=== PATIENT | female | born 1985 | race African-American/Black ===

== ENCOUNTER 2019-01-28 23:40 | Emergency (ER) | payer OTHER ==
[~2019-01-28] VITALS: Ht 175.3 cm; Wt 100.0 kg
[2019-01-29] MEDS ORDERED: VISCOUS LIDOCAINE 2% 15 ML UDC MM STA (01:39)
[2019-01-29] MEDS ORDERED: MAGNESIUM/ALUMINUM HYDROXIDE/SIMETHICONE 30ML UDC PO ONE (01:45)
[2019-01-29 04:17] VITALS: BP 119/55
== END 2019-01-29 04:19 | disposition home or self-care (01) ==
LOC: ER 23:40
DX: K21.9 Gastro-esophageal reflux disease without esophagitis (principal); R07.89 Other chest pain; F12.10 Cannabis abuse, uncomplicated; Z87.891 Personal history of nicotine dependence; Z88.0 Allergy status to penicillin
CPT/HCPCS: 81025; 93005; 99283